=== PATIENT | female | born 1990 | race Caucasian/White ===

== ENCOUNTER → 2021-05-21 | Outpatient (CLI) | payer OTHER ==
[~2021-05-21] MED LIST: COLACE 100MG C100 MG PO; DITROPAN 5 MG TA5 MG PO; DOCUSATE SODIU250 MG PO; HYDROCODONE-AC1 EACH PO; IBUPROFEN600 MG PO; ZANTAC150 MG PO
[2021-05-21 10:59] LABS: HEMOGLOBIN 13.2 gm/dl (12.3-15.3); RED BLOOD COUNT 4.58 M/UL (4.00-5.10); WHITE BLOOD COUNT 4.8 K/UL (4.5-11.0)
== END ==
LOC: OPSV2 10:00
PROVIDERS: Obstetrics & Gynecology
DX: Z01.812 Encounter for preprocedural laboratory examination (principal); N81.9 Female genital prolapse, unspecified
CPT/HCPCS: 36415; 81001; 85025

== ENCOUNTER → 2021-05-25 | Day surgery (SDC) | payer OTHER ==
[~2021-05-25] VITALS: Ht 160 cm; Wt 71.2 kg
== END | disposition home or self-care (01) ==
LOC: CDU 05:31 → OR 05:31 → UNDOADMIN 05:31 → EDSTATUS 07:30 → CDU 12:01
PROVIDERS: Obstetrics & Gynecology
PROC: 0UQF4ZZ Repair Cul-de-sac, Percutaneous Endoscopic Approach (ICD-10-PCS; principal; 2021-05-25 07:30)
PROC: 0JQC3ZZ Repair Pelvic Region Subcutaneous Tissue and Fascia, Percutaneous Approach (ICD-10-PCS; principal; 2021-05-25 07:30)
PROC: 0USG4ZZ Reposition Vagina, Percutaneous Endoscopic Approach (ICD-10-PCS; principal; 2021-05-25 07:30)
PROC: 0UT94ZZ Resection of Uterus, Percutaneous Endoscopic Approach (ICD-10-PCS; principal; 2021-05-25 07:30)
PROC: 0UT74ZZ Resection of Bilateral Fallopian Tubes, Percutaneous Endoscopic Approach (ICD-10-PCS; principal; 2021-05-25 07:30)
DX: N81.6 Rectocele (principal); N72 Inflammatory disease of cervix uteri; N80.0 Endometriosis of uterus; D64.9 Anemia, unspecified; E16.2 Hypoglycemia, unspecified; N39.46 Mixed incontinence; K59.00 Constipation, unspecified; Z20.822 Contact with and (suspected) exposure to COVID-19; Z87.891 Personal history of nicotine dependence
CPT/HCPCS: 84703; 87070; 87077; 87186; 87205; C1769; J0690; J1100; J1170; J1885; J2001; J2250; J2405; J2704; J2710; J3010; J7050; J7120